=== PATIENT | female | born 1980 | race Caucasian/White ===

== ENCOUNTER 2017-04-11 00:10 | Observation (INO) | payer BC ==
[2017-04-11] MEDS ORDERED: Fentanyl 100 MCG/2 ML VIAL ONE (01:33)
[2017-04-11 01:36] LABS: #Basophils 0.1 thou/uL (0.0-0.2); #Eosinphils 0.3 thou/uL (0.0-0.7); #Lymphocytes 2.6 thou/uL (1.20-3.40); #Monocytes 1.1 thou/uL (0.11-0.59); #Neutrophils 9.5 thou/uL (1.40-6.50); %Basophils 0.6 % (0.0-1.0); %Eosinophils 2.5 % (0.0-10.0); %Monocytes 8.2 % (0.0-10.0); %Neutrophils 69.7 % (42.0-75.0); Hemoglobin 10.6 g/dL (12.0-16.0); Mean Corpuscular HGB CONC 33.5 g/dL (32.0-36.0); Mean Corpuscular Hemoglobin 28.9 pg (27.0-31.0); Mean Corpuscular Volume 86.3 fl (81.0-99.0); Mean Platelet Volume 8.1 fL (7.4-10.4); Platelet Count 282 thou/uL (130-400); RBC Distribution Width 12.1 % (11.5-14.5); Red Blood Cell (RBC) Count 3.66 mill/uL (4.20-5.40); White Blood Cell (WBC) Count 13.6 thou/uL (4.8-10.8)
[2017-04-11 01:43] LABS: Prothrombin Time 13.8 SEC (12.0-14.7)
[2017-04-11] MEDS ORDERED: Misoprostol 200 MCG TAB PO SCH (02:11)
[2017-04-11] MEDS ORDERED: Tranexamic Acid 650 MG TAB PO SCH (02:12)
[2017-04-11] MEDS ORDERED: Promethazine HCl 25 MG/ML VIAL IM PRN (02:18)
[2017-04-11] MEDS ORDERED: HYDROcodone/Acetaminophen 5/325 mg Tablet PO PRN ×2 (02:19)
[2017-04-11] MEDS ORDERED: Prochlorperazine 10 MG/2 ML VIAL IM PRN (02:20)
[2017-04-11] MEDS ORDERED: Dextrose 5%-Lactated Ringers 1,000 ML IV SCH (02:30)
[2017-04-11] MEDS ORDERED: Lactated Ringer's 1,000 ML IV SCH ×2 (04:25)
[2017-04-11] MEDS ORDERED: Ondansetron HCl/PF 4 MG/2 ML Vial IVP PRN (04:25)
[2017-04-11] MEDS ORDERED: Misoprostol 200 MCG TAB PO PRN (04:25)
[2017-04-11 04:36] VITALS: BMI 26.6
[2017-04-11 07:17] LABS: Mean Corpuscular HGB CONC 33.6 g/dL (32.0-36.0); Mean Corpuscular Hemoglobin 29.1 pg (27.0-31.0); Mean Corpuscular Volume 86.4 fl (81.0-99.0); Mean Platelet Volume 7.9 fL (7.4-10.4); Platelet Count 199 thou/uL (130-400); RBC Distribution Width 11.9 % (11.5-14.5); Red Blood Cell (RBC) Count 2.41 mill/uL (4.20-5.40); White Blood Cell (WBC) Count 11.7 thou/uL (4.8-10.8)
--- NOTE | 2017-04-11 08:00 | PRG ---
DATE OF SERVICE: 04/11/2017 TIME OF SERVICE: 0720 hours SUBJECTIVE: The patient is doing well on the [facility]. She was kept in observation status and transferred here from the PACU at approximately 0400 hours as the PACU nurse was concerned about the patient's amount of vaginal bleeding post-D&C. She had a 50-75% saturated peripad every hour for 2 hours. She reports that the bleeding has decreased significantly and nursing reveals that peripad s are of just a small amount of blood at this time. OBJECTIVE: VITAL SIGNS: The patient's vital signs are stable. She is afebrile. Pulse is 85. GENERAL: She is resting comfortably. She denies abdominal pain. ABDOMEN: Soft and nontender without rebound or guarding and only a small amount of blood on the rosa m neum. EXTREMITIES: Without clubbing, cyanosis, or edema. LABORATORY STUDIES: Repeat hematocrit reveals her hematocrit has gone from 31.6%, was felt to be hem oconcentrated on admission to 20.8 with a hemoglobin of 7.0. IMPRESSION: Anemia status post acute hemorrhage from incomplete , now status post dilation a nd curettage. PLAN: 1. Transfuse 1 unit PRBCs. The patient has 2 units that are typed and crossed for her positive anti body panel. 2. Continue Lysteda and Cytotec. 3. Anticipate p.m. discharge. Dr. Felipe will be taking over at 0800 hours.
--- NOTE | 2017-04-11 09:08 | HP ---
DATE OF SERVICE: 04/11/2017 REASON FOR ADMISSION: Incomplete AB. HISTORY OF PRESENT ILLNESS: Ms. Toth is a 36-year-old 3, para 1, AB 1 at approximately 7 to 8 weeks gestation with an LMP in early January, who presents with 3 days of vaginal bleeding. She reports an increasing volume over the last 24 hours and it just got significantly worse this even ing. The patient is shaky and pale. She had a hematocrit done a couple days ago at Dr. Dubon's off ice with a hematocrit of 39%. Of note, the patient is B negative, antibody E positive in the past. She had persistence of this antibody on her laboratory in the past week at Dr. Dubon's office. OB AND IN HOUSE CRA HISTORY: x1 for non-reassuring heart rate, elective termination x1. PAST MEDICAL HISTORY: Denies. PAST SURGICAL HISTORY: Elective termination and . ALLERGIES: Denies. MEDICATIONS: vitamins. SOCIAL HISTORY: Denies tobacco, alcohol, IV drug abuse. FAMILY HISTORY AND REVIEW OF SYSTEMS: Noncontributory. PHYSICAL EXAMINATION: GENERAL: White female. VITAL SIGNS: Pulse of 103, blood pressure 105/72. HEENT: Within normal limits. LUNGS: Clear to auscultation bilaterally. HEART: Regular rhythm. BREASTS: Without masses bilaterally. ABDOMEN: Soft and nontender without rebound or guarding. PELVIC: Vulva without lesions. Vagina, the patient has clots noticed at the introitus. Pelvic exam by ER physician revealed an open os. EXTREMITIES: Without clubbing, cyanosis, or edema. LABORATORY AND X-RAY FINDINGS: Hematocrit pending. Blood type B negative, antibody pending. Beta h CG 12,000. Radiology studies: Bedside ultrasound by the ER physician revealed that the patient had a 3 to 4 cm empty gestational sac. Adnexa were not completely assessed at bedside. IMPRESSION: Incomplete with significant bleeding at 7 weeks' gestation with a positive anti body screen, B negative blood type, hematocrit pending. PLAN: Suction and sharp D&C for incomplete AB. We will get a hematocrit and type and cross the loida ent for 2 units. Do not anticipate that type and cross match blood will be available in the near fut ure because of the patient's antibody screen. We will inform the anesthesiologist this and work with them on other volume expanders for the patient.
--- NOTE | 2017-04-11 09:17 | DIS ---
DATE OF DISCHARGE: 04/11/2017 SUMMARY OF HOSPITAL COURSE: Ms. Toth came to the emergency room approximately midline on 2017 with incomplete . She was taken to the operating room and suction and sharp D and C was carried out approximately 0200 hours. Her hematocrit had been 38% the week before. She was noted t o be 31% in the emergency room. She had signs and symptoms of moderate hypovolemia. Of note, the pa tient was B negative with a positive anti-E antibody. She underwent suction and sharp D and C with m inimal intraoperative blood loss. She will be administered RhoGAM and followed up with Dr. Peewee boss in 3-4 weeks. She was given 1 gram of Ancef presurgery. Postoperatively, she was given Cytotec 600 mcg x1 p.o. as well as Lysteda 1300 mg p.o. x1.
[2017-04-11 12:32] VITALS: BP 104/56; TEMP 99.5
[2017-04-11] MEDS ORDERED: Propofol 200 MG/20 ML VIAL ONE (14:32)
[2017-04-11] MEDS ORDERED: Dexamethasone 20 MG/5 ML VIAL ONE (14:32)
[2017-04-11] MEDS ORDERED: Ketorolac Tromethamine 30 MG/ML VIAL ONE (14:32)
[2017-04-11] MEDS ORDERED: Ondansetron HCl/PF 4 MG/2 ML Vial ONE (14:32)
[2017-04-11] MEDS ORDERED: Metoclopramide HCl 10 MG/2 ML VIAL ONE (14:32)
--- NOTE | 2017-04-11 15:09 | OP ---
DATE OF PROCEDURE: 04/11/2017 PREOPERATIVE DIAGNOSIS: Incomplete at 8 weeks gestation. POSTOPERATIVE DIAGNOSIS: Incomplete at 8 weeks gestation. PROCEDURE: Suction and sharp D&C for incomplete AB at 8 weeks gestation. SURGEON: Dr. Koko Spencer. ANESTHESIA: General endotracheal, Lebron Sheridan M.D. MEDICATIONS: One gram Ancef preincision. DVT PROPHYLAXIS: SCDs. COMPLICATIONS: None. ESTIMATED BLOOD LOSS: 50 mL. OPERATIVE FINDINGS: 1. Pre and post-sound 10 cm. 2. Products of conception. 3. Hemostasis at the end of the procedure. DISPOSITION: To the recovery room in good condition with discharge home for followup with Dr. Peewee Dubon. DESCRIPTION OF OPERATIVE PROCEDURE: After obtaining proper informed consent, the patient was taken t o the operating room where general endotracheal anesthesia was achieved without difficulty. Patient prepped and draped in dorsal lithotomy in candy canes. Side-hand speculum placed in vagina. The cer vix was identified and grasped with single tooth tenaculum at 12 o'clock, os was opened, sounded to 1 0-11 cm. A 9 mm curved suction curet was introduced with a max vacuum at 15 mmHg into the uterine ca vity with good flow of products of conception noted. It was spun circumferentially until there was c essation of flow of products of conception. Once this was removed, sharp curettage was carried out u ntil a gritty texture consistent with complete removal of products of conception was noted. Suction curet was reintroduced and again was turned in a clockwise manner until cessation of flow of products of conception was noted. Post-sound was 11 cm. Bleeding was noted to be minimal. Tenaculum remove d. Speculum removed. Patient awakened, extubated, and taken to recovery room in good condition.
--- NOTE | 2017-04-11 21:41 | DIS ---
DATE OF ENCOUNTER: 04/11/2017 ADMITTING DIAGNOSIS: Incomplete with hemorrhage. DISCHARGE DIAGNOSIS: Incomplete with hemorrhage. PROCEDURE: Suction D&C and blood transfusion. CONSULTATIONS: None. HOSPITAL COURSE: Ms. Irma Toth presented to the emergency room early this morning with heavy vaginal bleeding with an intrauterine at about 7-8 weeks. The patient ultimately required a suction D&C to complete this process given the extent of bleeding the patient was experiencing. He r post-procedure hemoglobin and hematocrit was 7 and 20.8, down from 10.6 and 31.6 five hours previou s. Patient was quite symptomatic with dizziness, lightheadedness, and shortness of breath and has be en transfused 1 unit of packed red blood cells today. After the transfusion, the patient has reporte d feeling a lot better. She has been ambulating and feels like she is able to get around 2 at home w ithout risk of syncope. The patient will be discharged to home. She has been encouraged to take iro n and vitamin C for the next several months and to follow up with her primary OB, Dr. Peewee cedeño o has been notified of this hospitalization. The patient is also given instructions to seek medical attention sooner if she experiences fever, increasing pain or bleeding or excessive fatigue, shortnes s of breath, dizziness, chest pain. Patient will be going home without any prescribed medications.
== END 2017-04-11 17:07 | disposition home or self-care (01) ==
LOC: ERS 00:10 → SDC/OP 02:10 → 3SE 04:07
PROVIDERS: ADMIT Obstetrics & Gynecology; ATTEND Obstetrics & Gynecology
PROC: 10D17ZZ Extraction of Products of Conception, Retained, Via Natural or Artificial Opening (ICD-10-PCS; principal; 2017-04-11)
DX: O03.1 Delayed or excessive hemorrhage following incomplete spontaneous abortion (principal); D62 Acute posthemorrhagic anemia; Z3A.08 8 weeks gestation of pregnancy; Z79.899 Other long term (current) drug therapy; Z98.891 History of uterine scar from previous surgery; Z98.890 Other specified postprocedural states
CPT/HCPCS: 36415; 36430; 84702; 85025; 85610; 86850; 86900; 86901; 86922; 88305; 90384; 96360; 96372; G0378; J1100; J1885; J2405; J2704; J2765; J3010; P9016

== ENCOUNTER 2017-09-26 10:10 | Outpatient (CLI) | payer OTHER ==
--- NOTE | 2017-09-26 14:20 | ULT ---
PELVIC ULTRASOUND WITH DOPPLER: (Transabdominal, transvaginal, Ferreira scale, color flow, and spectral Doppler) Date: 09/26/17 HISTORY: Pain during menstruation. FINDINGS: Uterus measures 11.1 x 4.5 x 5.1 cm without focal mass or endometrial fluid. There is fluid in the ce rvix. The right ovary is not visualized. The left ovary measure 3.1 x 1.9 x 3.4 cm. There is flow to the le ft ovary. There is free fluid in the cul-de-sac. IMPRESSION: Fluid in the cervix. Evaluation for cervical outlet obstruction is recommended. POS: SOLO
== END 2017-09-26 10:11 | disposition home or self-care (01) ==
LOC: SCSULT 10:10
PROVIDERS: ATTEND Family Medicine
DX: N94.6 Dysmenorrhea, unspecified (principal)
CPT/HCPCS: 76856

== ENCOUNTER 2022-04-08 09:13 | Outpatient (CLI) | payer OTHER | END 2022-04-08 09:14 | disposition home or self-care (01) | LOC: NM 09:13 | PROVIDERS: ATTEND Internal Medicine | DX: K21.9 Gastro-esophageal reflux disease without esophagitis (principal); R11.2 Nausea with vomiting, unspecified; T18.128A Food in esophagus causing other injury, initial encounter; R94.8 Abnormal results of function studies of other organs and systems | CPT/HCPCS: 78264; A9541 ==